=== PATIENT | female | born 1995 | race Caucasian/White ===

== ENCOUNTER 2017-06-16 15:49 | Emergency (ER) | payer OTHER ==
[~2017-06-16] VITALS: Ht 160 cm; Wt 71.8 kg
[2017-06-16 15:52] VITALS: TEMP 37.1; Ht 160 cm; Wt 71.8 kg
[2017-06-16 16:46] LABS: BASO % 0.1 %; BASO ABS # 0.01 K/uL (0-0.2); EOS % 0.3 %; EOS ABS # 0.03 K/uL (0-0.5); HEMATOCRIT 40.3 % (37-47); HEMOGLOBIN 13.8 g/dL (12.0-16.0); IG# 0.04 K/uL (0.00-0.02); LYMPH % 13.5 %; LYMPH ABS # 1.22 K/uL (1.2-3.4); MEAN CELL VOLUME 90.2 fL (80-100); MEAN CORPUSCULAR HEMOGLOBIN 30.9 pg (25-34); MEAN CORPUSCULAR HGB CONC 34.2 g/dl (32-36); MEAN PLATELET VOLUME 9.6 fL (7.4-10.4); MONO % 1.1 %; NEUT % 84.6 %; NEUT ABS # 7.61 K/uL (1.4-6.5); PLATELET COUNT 175 K/uL (130-400); RED CELL DISTRIBUTION WIDTH CV 12.6 % (11.5-14.5); RED CELL DISTRIBUTION WIDTH SD 41.2 fL (36.4-46.3); WHITE BLOOD COUNT 9.01 K/uL (4.8-10.8)
[2017-06-16 16:54] LABS: INR 0.9 (0.9-1.1); PTT PATIENT 20.1 SECONDS (21.0-31.0)
[2017-06-16 17:10] LABS: ALT/SGPT 35 U/L (12-78); AST/SGOT 18 U/L (15-37); BLOOD UREA NITROGEN 21 mg/dl (7-18); CALCIUM 9.3 mg/dl (8.5-10.1); CARBON DIOXIDE 25 mmol/L (21-32); CREATININE 0.93 mg/dl (0.60-1.20); GLUCOSE 123 mg/dl (70-99); POTASSIUM 3.8 mmol/L (3.5-5.1); SODIUM 135 mmol/L (136-145)
[2017-06-16 17:12] LABS: ALKALINE PHOSPHATASE 63 U/L (45-117); TOTAL PROTEIN 7.9 gm/dl (6.4-8.2)
--- NOTE | 2017-06-16 18:03 | EMERGENCY ROOM VISIT NOTE ---
ED Visit Note First contact with patient: 15:55 Patient seen following discussion with physician assistant track coach. Please refer to his note for additional details. Rash nonspecific and unclear etiology. Labs reassuring. Patient otherwise well-appearing here. Advised close follow-up with dermatology and continued course of oral prednisone as she was started on by her family doctor. Discussed symptoms to watch and return for. Will attempt to have manager of case managementsenior strategy manager dermatology for close follow-up appointment.
[2017-06-16] MEDS ORDERED: TRMCR180 TD (18:42)
[2017-06-16] MEDS ORDERED: HYDR1CAP85 PO (18:42)
--- NOTE | 2017-06-16 18:44 | EMERGENCY ROOM VISIT NOTE ---
History First contact with patient: 15:55 Chief Complaint: RASH Stated Complaint: RASH/ITCH History of Present Illness The patient is a 21 year old female who presents to the Emergency Room via private vehicle with complaints of "rash/itch". The patient states that she has been experiencing a rash started on her arms 3 weeks ago. She was seen by the family doctor gave her permethrin cream 2 and oral steroids for 12 days and is now beginning another course. She has had no relief and notes it is worsening. She denies any pain but states it is very itchy to the point where she cannot sleep at night sometimes. She now has bruising from scratching so much. No chills, nausea, vomiting, genitourinary symptoms, GI symptoms, chance of no underlying significant past medical history. She denies any travel. She states that although she was treated for scabies her significant other has no symptoms of such. She felt feverish over the past few weeks with this. Review of Systems A complete 6-point Review of Systems was discussed with the patient, with pertinent positives and negatives listed in the History of Present Illness. All remaining Review of Systems questions can be considered negative unless otherwise specified. Past Medical/Surgical History No pertinent. Family History Not contributory. Social History Smoking Status: Never Smoker Patient lives locally with significant other. Current/Historical Medications Scheduled Triamcinolone Acet (Aristocort 0.1%), 1 APPLN TD DAILY Scheduled PRN Hydroxyzine Pamoate (Vistaril), 25 MG PO HS PRN for Itching Physical Exam Vital Signs Date Time Temp Pulse Resp B/P (MAP) Pulse Ox O2 Delivery O2 Flow Rate FiO2 06/16/17 18:50 79 16 137/88 96 06/16/17 18:08 82 20 124/90 98 Room Air 06/16/17 15:52 37.1 93 16 136/89 97 Room Air Physical Exam VITAL SIGNS - Vital signs and nursing notes were reviewed. Stable. GENERAL -21-year-old female appearing her stated age who is in no acute distress. Communicates well with provider and answers questions appropriately. SKIN -there is a slightly raised, and slightly erythematous clustered, 2 mm in diameter with multiple papules throughout the dorsal aspect of the patient's proximal arms, and inner thighs. There is also erythematous pustules on the anterior chest. HEAD - NC/AT. EYES - PERRL with EOMI bilaterally. Sclera anicteric. EARS - No deformities of external structures noted on gross examination bilaterally. NOSE - Midline and without cyanosis. No epistaxis or purulent drainage noted. MOUTH/OROPHARYNX - Without perioral cyanosis. No intraoral lesion. NECK - Neck with FROM. Supple to palpation. No lymphadenopathy noted. No nuchal rigidity. LUNGS - Chest wall symmetric without accessory muscle use, intercostals retractions, or central cyanosis. Normal vesicular breath sounds CTA B/L. No wheezes, rales, or rhonchi appreciated. CARDIAC - RRR with S1/S2. No murmur, rubs, or gallops appreciated. EXTREMITIES - No clubbing or peripheral cyanosis. No pretibial edema present. + 5/5 strength noted in UE/LE bilaterally. NEUROLOGIC - Cranial nerves II through XII grossly intact. Sensory intact to light touch throughout. PSYCH - A&O, and cooperates fully with examiner. Pt is very pleasant and interacts well with examiner. Medical Decision & Procedures Laboratory Results 06/16/17 16:27 Red Blood Count 4.47, Mean Corpuscular Volume 90.2, Mean Corpuscular Hemoglobin 30.9, Mean Corpuscular Hemoglobin Concent 34.2, Mean Platelet Volume 9.6, Neutrophils (%) (Auto) 84.6, Lymphocytes (%) (Auto) 13.5, Monocytes (%) (Auto) 1.1, Eosinophils (%) (Auto) 0.3, Basophils (%) (Auto) 0.1, Neutrophils # (Auto) 7.61, Lymphocytes # (Auto) 1.22, Monocytes # (Auto) 0.10, Eosinophils # (Auto) 0.03, Basophils # (Auto) 0.01 06/16/17 16:27 Test 06/16/17 16:27 White Blood Count 9.01 K/uL (4.8-10.8) Red Blood Count 4.47 M/uL (4.2-5.4) Hemoglobin 13.8 g/dL (12.0-16.0) Hematocrit 40.3 % (37-47) Mean Corpuscular Volume 90.2 fL (80-100) Mean Corpuscular Hemoglobin 30.9 pg (25-34) Mean Corpuscular Hemoglobin Concent 34.2 g/dl (32-36) Platelet Count 175 K/uL (130-400) Mean Platelet Volume 9.6 fL (7.4-10.4) Neutrophils (%) (Auto) 84.6 % Lymphocytes (%) (Auto) 13.5 % Monocytes (%) (Auto) 1.1 % Eosinophils (%) (Auto) 0.3 % Basophils (%) (Auto) 0.1 % Neutrophils # (Auto) 7.61 K/uL (1.4-6.5) Lymphocytes # (Auto) 1.22 K/uL (1.2-3.4) Monocytes # (Auto) 0.10 K/uL (0.11-0.59) Eosinophils # (Auto) 0.03 K/uL (0-0.5) Basophils # (Auto) 0.01 K/uL (0-0.2) RDW Standard Deviation 41.2 fL (36.4-46.3) RDW Coefficient of Variation 12.6 % (11.5-14.5) Immature Granulocyte % (Auto) 0.4 % Immature Granulocyte # (Auto) 0.04 K/uL (0.00-0.02) Erythrocyte Sedimentation Rate 6 mm/hr (0-21) Prothrombin Time 9.4 SECONDS (9.0-12.0) Prothromb Time International Ratio 0.9 (0.9-1.1) Activated Partial Thromboplast Time 20.1 SECONDS (21.0-31.0) Partial Thromboplastin Ratio 0.8 Anion Gap 6.0 mmol/L (3-11) Est Creatinine Clear Calc Drug Dose 89.3 ml/min Estimated GFR () 100.4 Estimated GFR (Non- 86.6 BUN/Creatinine Ratio 22.1 (10-20) Calcium Level 9.3 mg/dl (8.5-10.1) Total Bilirubin 0.4 mg/dl (0.2-1) Aspartate Amino Transf (AST/SGOT) 18 U/L (15-37) Alanine Aminotransferase (ALT/SGPT) 35 U/L (12-78) Alkaline Phosphatase 63 U/L (45-117) C-Reactive Protein < 0.29 mg/dl (0-0.29) Total Protein 7.9 gm/dl (6.4-8.2) Albumin 4.0 gm/dl (3.4-5.0) Globulin 3.9 gm/dl (2.5-4.0) Albumin/Globulin Ratio 1.0 (0.9-2) Medical Decision Patient was seen and evaluated as above in room D7. Review was performed of nursing notes and vital signs. After obtaining a thorough history and physical examination the above work up was performed. She presents with a rash. She has tried numerous remedies. He does not look like scabies. It is not responding to steroids. I did elect to obtain baseline lab workup which did not show any concerning underlying abnormality. I did consult dermatology, and spoke with Dr. Sawyer. He recommended Vistaril, triamcinolone cream and he was going to see the patient tomorrow. I think this is an excellent plan. Patient seemed very happy with this. She will be discharged to follow-up tomorrow. No evidence of underlying acute emergent process. The patient was educated upon management, had questions answered prior to discharge, and was discharged home in good condition. In the evaluation and treatment of this patient the following differential diagnoses were entertained: Scabies, skin eruption, sepsis, endocarditis, among others. Impression Primary Impression: Rash Departure Information Dispostion Home / Self-Care Condition GOOD Prescriptions Hydroxyzine Pamoate (VISTARIL) 25 Mg Cap 25 MG PO HS Y for Itching for 30 Days, #30 CAP Prov: Joey Deleon PA-C 06/16/17 Triamcinolone Acet (ARISTOCORT 0.1%) 240 Appln/80 Gm Cr 1 APPLN TD DAILY for 30 Days, #1 TUBE Prov: Joey Deleon PA-C 06/16/17 Referrals No Doctor, Assigned (PCP) Shawn Sawyer MD Patient Instructions My [facility] Additional Instructions You were seen in the emergency department for a rash. Dr. Sawyer would like to see you tomorrow in his office. Please call 8 AM. Please explained that you were seen in the ER and he wants to see you tomorrow In the meantime please apply a thin coat of the cream, and he may take 25 mg of the hydroxyzine tonight to sleep. Please then apply cool compresses to the most itchy areas. Please call your family doctor to schedule follow-up with the blood work. Please return with any new/concerning symptoms.
[2017-06-16 18:50] VITALS: BP 137/88; PULSE 79; O2SAT 96
== END 2017-06-16 18:50 | disposition home or self-care (01) ==
LOC: C.EDB 15:50 → C.EDD 18:50
DX: R21 Rash and other nonspecific skin eruption (principal)

== ENCOUNTER 2017-07-10 11:29 | Emergency (ER) | payer OTHER ==
[~2017-07-10] VITALS: Ht 160 cm; Wt 74.0 kg
[~2017-07-10 11:29] MED LIST: HYDR1CAP85 PO; TRMCR180 TD
[2017-07-10 11:34] VITALS: Ht 160 cm; Wt 74.0 kg
[2017-07-10 12:21] LABS: BASO % 0.1 %; BASO ABS # 0.01 K/uL (0-0.2); EOS % 1.7 %; EOS ABS # 0.16 K/uL (0-0.5); HEMATOCRIT 39.1 % (37-47); HEMOGLOBIN 13.5 g/dL (12.0-16.0); IG# 0.02 K/uL (0.00-0.02); LYMPH % 23.4 %; LYMPH ABS # 2.16 K/uL (1.2-3.4); MEAN CELL VOLUME 90.1 fL (80-100); MEAN CORPUSCULAR HEMOGLOBIN 31.1 pg (25-34); MEAN CORPUSCULAR HGB CONC 34.5 g/dl (32-36); MEAN PLATELET VOLUME 8.7 fL (7.4-10.4); MONO % 7.5 %; MONO ABS # 0.69 K/uL (0.11-0.59); NEUT % 67.1 %; NEUT ABS # 6.18 K/uL (1.4-6.5); PLATELET COUNT 152 K/uL (130-400); RED CELL DISTRIBUTION WIDTH CV 12.8 % (11.5-14.5); RED CELL DISTRIBUTION WIDTH SD 42.4 fL (36.4-46.3); WHITE BLOOD COUNT 9.22 K/uL (4.8-10.8)
[2017-07-10 12:38] LABS: ALBUMIN 3.8 gm/dl (3.4-5.0); CALCIUM 8.9 mg/dl (8.5-10.1); CREATININE 0.95 mg/dl (0.60-1.20); POTASSIUM 2.9 mmol/L (3.5-5.1); TOTAL PROTEIN 7.2 gm/dl (6.4-8.2)
[2017-07-10] MEDS ORDERED: POTASSIUM CHLORIDE 10 MEQ TABCR PO STA (12:40)
--- NOTE | 2017-07-10 12:58 | EMERGENCY ROOM VISIT NOTE ---
History First contact with patient: 11:47 Chief Complaint: GI ASSESSMENT Stated Complaint: RASH,SWOLLEN STOMACH Nursing Triage Summary: Triage Notes: patient to ed via triage, states "my stomach is really distended , I just noticed it this morning, don't really have pain, but a little discomfort. I've been having some diarrhea as well." c/o rash, ongoing for several months, been treated here and with dermatology History of Present Illness The patient is a 21 year old female who presents to the Emergency Room with complaints of abdominal distention which she believes may be associated with a rash she has been experiencing for 2 months. She states she is currently being followed by dermatology and had a biopsy of the rash performed on Wednesday. She has been through multiple treatments dating permethrin, doxycycline, then was started on prednisone, Zyrtec, ranitidine, and triamcinolone due to the concern for possible allergic reaction to doxycycline. The patient states she discontinued the. This morning she ate a normal breakfast consisting of waffles , [place] muffin, and eggs, and states 2 hours later while shopping and trying on clothes, noticed her abdomen was distended. 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 The patient states for the past 2 months she has been running a low-grade fever between 99 and 100F. She states this is been consistent, every time she is seen at a doctor's office. She does report some loose stools for the past 2 days, however has not moved her bowels today. The patient reports some discomfort in the epigastric region associated with some reflux which is worse while laying down. The patient has been able to urinate and denies any urinary symptoms including dysuria, hematuria, frequency, or hesitancy. She denies any recent constipation. She does not have a history of gallbladder disease. She denies any significant nausea or vomiting. There was no trauma. The symptoms do not seem to be exacerbated by food. Review of Systems A complete 10 point review of systems was reviewed with the patient with pertinent positives and negatives as per history of present illness. All else were negative. Past Medical/Surgical History Rash Social History Smoking Status: Current Some Day Smoker Smokeless Tobacco Use: No Alcohol Use: none Drug Use: none Marital Status: single Housing Status: lives with family Occupation Status: employed Current/Historical Medications Scheduled Cetirizine Hcl (Zyrtec Allergy), 10 MG PO DAILY Citalopram Hydrobromide (Citalopram), 20 MG PO QAM Etonogestrel/Ethinyl Estradiol (Nuvaring), 1 EA VAGRING MONTHLY Ferrous Sulfate (Iron (Ferrous Sulfate)), 50 MG PO DAILY Lisdexamfetamine Dimesylate (Vyvanse), 20 MG PO QAM Potassium Chloride (Potassium Chloride Er), 1 TAB PO DAILY Triamcinolone Acet (Aristocort 0.1%), 1 APPLN TD DAILY Scheduled PRN Hydroxyzine Pamoate (Vistaril), 25 MG PO HS PRN for Itching Physical Exam Vital Signs Date Time Temp Pulse Resp B/P (MAP) Pulse Ox O2 Delivery O2 Flow Rate FiO2 07/10/17 14:23 36.7 99 20 113/72 98 07/10/17 14:22 99 20 113/72 98 Room Air 07/10/17 11:34 36.7 105 20 159/90 96 Room Air Physical Exam VITALS: Vitals are noted on the nurse's note and reviewed by myself. Vital signs stable. GENERAL: This is a 21-year-old white female, in no acute distress, nondiaphoretic, well-developed well-nourished. SKIN: There is an erythematous rash from head to toe. The skin was otherwise without erythema, edema, or bruising. There is no tenting of the skin. Capillary reflex less than 2 seconds. HEAD: Normocephalic atraumatic. EARS: External auditory canals clear, tympanic membranes pearly [place] without erythema or effusion bilaterally. EYES: Pupils equal round and reactive to light and accommodation. Conjunctivae without injection, sclerae without icterus. Extraocular movements intact. NOSE: Patent, turbinates without inflammation or discharge. No sinus tenderness. MOUTH: Mucous membranes moist. Tonsils are not enlarged. Pharynx without erythema or exudate. Uvula midline. Airway patent. Tongue does not deviate. NECK: Supple without nuchal rigidity. No lymphadenopathy. No thyromegaly. Cervical spine is nontender. No JVD. HEART: Regular rate and rhythm without murmurs gallops or rubs. LUNGS: Clear to auscultation bilaterally without wheezes, rales or rhonchi. No dullness to percussion. No retractions or accessory muscle use. ABDOMEN: Positive bowel sounds x 4. Normal tympanic percussion. The abdomen was slightly distended. There was some mild epigastric and right upper quadrant discomfort on exam. The abdomen was otherwise soft, nontender, without masses or organomegaly. Orourke sign positive. No guarding or rebound tenderness. MUSCULOSKELETAL: No muscle atrophy, erythema, or edema noted. Full range of motion without joint tenderness in all extremities. No tenderness to palpation. Normal gait. Strength 5/5 throughout. NEURO: Patient was alert and oriented to person place and time. Normal sensation to light and sharp touch. Deep tendon reflexes 2+ throughout. No focal neurological deficits. Medical Decision & Procedures Laboratory Results 07/10/17 12:00 Red Blood Count 4.34, Mean Corpuscular Volume 90.1, Mean Corpuscular Hemoglobin 31.1, Mean Corpuscular Hemoglobin Concent 34.5, Mean Platelet Volume 8.7, Neutrophils (%) (Auto) 67.1, Lymphocytes (%) (Auto) 23.4, Monocytes (%) (Auto) 7.5, Eosinophils (%) (Auto) 1.7, Basophils (%) (Auto) 0.1, Neutrophils # (Auto) 6.18, Lymphocytes # (Auto) 2.16, Monocytes # (Auto) 0.69, Eosinophils # (Auto) 0.16, Basophils # (Auto) 0.01 07/10/17 12:00 Test 07/10/17 12:00 White Blood Count 9.22 K/uL (4.8-10.8) Red Blood Count 4.34 M/uL (4.2-5.4) Hemoglobin 13.5 g/dL (12.0-16.0) Hematocrit 39.1 % (37-47) Mean Corpuscular Volume 90.1 fL (80-100) Mean Corpuscular Hemoglobin 31.1 pg (25-34) Mean Corpuscular Hemoglobin Concent 34.5 g/dl (32-36) Platelet Count 152 K/uL (130-400) Mean Platelet Volume 8.7 fL (7.4-10.4) Neutrophils (%) (Auto) 67.1 % Lymphocytes (%) (Auto) 23.4 % Monocytes (%) (Auto) 7.5 % Eosinophils (%) (Auto) 1.7 % Basophils (%) (Auto) 0.1 % Neutrophils # (Auto) 6.18 K/uL (1.4-6.5) Lymphocytes # (Auto) 2.16 K/uL (1.2-3.4) Monocytes # (Auto) 0.69 K/uL (0.11-0.59) Eosinophils # (Auto) 0.16 K/uL (0-0.5) Basophils # (Auto) 0.01 K/uL (0-0.2) RDW Standard Deviation 42.4 fL (36.4-46.3) RDW Coefficient of Variation 12.8 % (11.5-14.5) Immature Granulocyte % (Auto) 0.2 % Immature Granulocyte # (Auto) 0.02 K/uL (0.00-0.02) Urine Color YELLOW Urine Appearance CLEAR (CLEAR) Urine pH 7.0 (4.5-7.5) Urine Specific [place] 1.010 (1.000-1.030) Urine Protein NEG (NEG) Urine Glucose (UA) NEG (NEG) Urine Ketones NEG (NEG) Urine Occult Blood NEG (NEG) Urine Nitrite NEG (NEG) Urine Bilirubin NEG (NEG) Urine Urobilinogen NEG (NEG) Urine Leukocyte Esterase NEG (NEG) Anion Gap 7.0 mmol/L (3-11) Est Creatinine Clear Calc Drug Dose 88.7 ml/min Estimated GFR () 97.8 Estimated GFR (Non- 84.4 BUN/Creatinine Ratio 14.4 (10-20) Calcium Level 8.9 mg/dl (8.5-10.1) Total Bilirubin 0.5 mg/dl (0.2-1) Aspartate Amino Transf (AST/SGOT) 17 U/L (15-37) Alanine Aminotransferase (ALT/SGPT) 27 U/L (12-78) Alkaline Phosphatase 46 U/L (45-117) Total Protein 7.2 gm/dl (6.4-8.2) Albumin 3.8 gm/dl (3.4-5.0) Globulin 3.4 gm/dl (2.5-4.0) Albumin/Globulin Ratio 1.1 (0.9-2) Lipase 173 U/L (73-393) Medications Administered Medications (Trade) Dose Ordered Sig/Alfredo Route Start Time Stop Time Status Last Admin Dose Admin Potassium Chloride (Klor-Con M10) 20 meq NOW STAT PO 07/10/17 12:40 07/10/17 12:42 DC 07/10/17 13:30 20 MEQ Lidocaine HCl (Viscous Lidocaine 2% Soln) 20 ml STK-MED ONCE .ROUTE 07/10/17 14:05 07/10/17 14:06 DC 07/10/17 14:11 20 ML Al Hydroxide/Mg Hydroxide (Maalox Susp) 30 ml STK-MED ONCE .ROUTE 07/10/17 14:05 07/10/17 14:06 DC 07/10/17 14:11 30 ML ED Course Patient seen and evaluated as above. IV access obtained, labs drawn. Previous medical records reviewed. Labs were reviewed. The patient was given 20 mEq potassium p.o. Imaging studies reviewed by myself and radiologist as above. I discussed the findings with the patient and her mother at bedside. The patient was given a GI cocktail. I discussed the case with Dr. phillips. Discharge instructions reviewed, patient was discharged home in good condition. Medical Decision This is a 21-year-old female patient presents to the emergency department today complaining of abdominal distention. She suspects this is related to a rash she has had going on for approximately 2 months. The patient has not had a bowel movement today. She denies any other associated symptoms including nausea , vomiting, or fevers. She is sexually active but denies . Labs are without leukocytosis, anemia, or thrombocytopenia. Urinalysis without signs of infection. Urine test negative. Potassium low at 2.9. CMP without other electrolyte abnormalities. Renal and hepatic function normal. Lipase normal at 173. Abdominal X-ray and ultrasound of the RUQ were without acute findings. I suspect constipation and some mild gastritis as the cause of the patient's symptoms, as she was recently on Zantac and discontinued it. She is having some reflux complaints with lying flat. The patient was given a GI cocktail. I advised her to eat a high fiber diet, drink plenty of fluids, and use Miralax and/or Gas-x to help with her symptoms. She is to follow-up with her syrup mixer regarding the rash. I did recommend some potassium supplementation due to the hypokalemia with re-check early next week. She verbalizes understanding and agreement. All questions answered to the patient's satisfaction. Etiologies such as appendicitis, gastritis, diverticulitis, obstruction, inflammatory bowel disease, constipation, renal colic, PUD, biliary pathology, pancreatitis, mesenteric ischemia, aortic pathology, infections, genitourinary, UTI, , perforated viscus, as well as others were entertained. The chart was completed utilizing [employer] Speech voice recognition software. Grammatical errors, random word insertions, pronoun errors, and incomplete sentences are an occasional consequence of this system due to software limitations, ambient noise, and hardware issues. Any formal questions or concerns about the content, text, or information contained within the body of this dictation should be directly addressed to the provider for clarification. Medication Reconcilliation Current Medication List: was personally reviewed by me Blood Pressure Screening Patient's blood pressure: Normal blood pressure Impression Primary Impression: Hypokalemia Additional Impressions: Abdominal distension Gastritis Departure Information Dispostion Home / Self-Care Condition GOOD Prescriptions Potassium Chloride (POTASSIUM CHLORIDE ER) 10 Meq Tab 1 TAB PO DAILY, #30 TAB Prov: Ruthie Howard, FLORA 07/10/17 Referrals Angeles Varghese M.D. (PCP) Patient Instructions ED Constipation, My [facility] Additional Instructions You have been treated in the Emergency Department today for abdominal distention. Laboratory results and imaging studies do not indicate any emergent issues warranting surgery or admission. As discussed, there is no indication for bowel obstruction. I suspect her symptoms are related to some mild constipation and gastritis You should drink plenty of fluids and stay well hydrated as this can help soften your stool. Increasing your fiber intake can help with frequency and consistency of your stools. Fruits, vegetables, and whole grains are all good sources of dietary fibers. In addition, you might consider adding supplemental fiber to your diet as well (i.e. Benefiber, Fiber Choice, Metamucil). You may consider taking Maalox or Gas-X for your symptoms. I do recommend starting Prilosec 20 mg daily to help with the reflux and gastritis. Your potassium was low here in the emergency department. Please take potassium supplement 2 tablets daily through the weekend. Follow-up with your primary care provider Wednesday to have the potassium rechecked. Return to the Emergency Department if your current symptoms worsen despite treatment course outlined above, or if you develop any of the following symptoms : worsening abdominal pain, large amount of blood in the stool, black or tarry stools, fevers, chills, or uncontrollable vomiting. Problem Qualifiers Additional Impressions: Gastritis Gastritis type: unspecified gastritis Chronicity: acute Gastritis bleeding : without bleeding Qualified Codes: K29.00 - Acute gastritis without bleeding
--- NOTE | 2017-07-10 13:06 | DIAGNOSTIC IMAGING REPORT ---
ABDOMINAL ULTRASOUND, RIGHT UPPER QUADRANT HISTORY: epigastric/RUQ tenderness. COMPARISON: None. FINDINGS: Pancreas: The pancreas demonstrates a normal echotexture. Liver: Unremarkable. Gallbladder: No gallbladder wall thickening. No gallstones. CBD: 3 mm. Right kidney: No hydronephrosis. IMPRESSION: No significant abnormality identified within the right upper quadrant. Electronically signed by: Randy Melendez M.D. 07/10/2017 1:04 PM Dictated Date/Time: 07/10/2017 1:04 PM
--- NOTE | 2017-07-10 13:08 | DIAGNOSTIC IMAGING REPORT ---
CHEST AND ABDOMEN 2 VIEWS HISTORY: abdominal distension COMPARISON: FINDINGS: The lungs are clear. The cardiomediastinal silhouette is within normal limits. There is no pneumoperitoneum or pneumatosis. The bowel gas pattern is unremarkable. No evidence for bowel obstruction. No renal or ureteral calculi. Posterior fusion defect at S1. IMPRESSION: No acute cardiopulmonary process. No evidence for bowel obstruction. Electronically signed by: Randy Melendez M.D. 07/10/2017 1:06 PM Dictated Date/Time: 07/10/2017 1:05 PM
[2017-07-10] MEDS ORDERED: CITA-295 PO (13:18)
[2017-07-10] MEDS ORDERED: LISD20CA PO (13:18)
[2017-07-10] MEDS ORDERED: ETONMIS VAGRING (13:19)
[2017-07-10] MEDS ORDERED: FERR50TA3 PO (13:19)
[2017-07-10] MEDS ORDERED: CETI10CA PO (13:19)
[2017-07-10] MEDS ORDERED: GI COCKTAIL PO STA (13:42)
[2017-07-10] MEDS ORDERED: POTA-74 PO (13:57)
[2017-07-10] MEDS ORDERED: ALUMINUM/MAGNESIUM SUSP 30 ML UDC ONE (14:05)
[2017-07-10] MEDS ORDERED: LIDOCAINE HCL 2% VISC SOLN 20 ML UDC ONE (14:05)
[2017-07-10 14:23] VITALS: BP 113/72; PULSE 99; TEMP 36.7; O2SAT 98
== END 2017-07-10 14:24 | disposition home or self-care (01) ==
LOC: C.EDB 11:30 → C.EDA 14:24
DX: E87.6 Hypokalemia (principal); R14.0 Abdominal distension (gaseous); K29.00 Acute gastritis without bleeding; F17.200 Nicotine dependence, unspecified, uncomplicated